=== PATIENT | male | born 1965 | race Hispanic/Latino ===

== ENCOUNTER 2023-09-07 16:34 | Emergency (ER) | payer BC, OTHER ==
[~2023-09-07] VITALS: Ht 165.1 cm; Wt 86.2 kg
[2023-09-07] MEDS ORDERED: IBUP-2070 PO (22:16)
[2023-09-07] MEDS ORDERED: CEPH500B PO (22:16)
[2023-09-07] MEDS ORDERED: CEPHALEXIN 500 MG CAPSULE PO ONE (22:30)
[2023-09-07] MEDS ORDERED: TETANUS/DIPHTHERIA TOXOID [ADULT] 0.5 ML VIAL IM ONE (22:30)
[2023-09-07 23:54] VITALS: BP 132/78; PULSE 74; RESP 18; O2SAT 98
== END 2023-09-08 00:09 | disposition home or self-care (01) ==
LOC: EDH 16:34
DX: S91.332A Puncture wound without foreign body, left foot, initial encounter (principal); E11.9 Type 2 diabetes mellitus without complications; E78.00 Pure hypercholesterolemia, unspecified; I10 Essential (primary) hypertension; W18.31XA Fall on same level due to stepping on an object, initial encounter; Y93.89 Activity, other specified; Y92.89 Other specified places as the place of occurrence of the external cause; Y99.8 Other external cause status
CPT/HCPCS: 73630; 90471; 90714